=== PATIENT | male | born 1985 | race African-American/Black ===

== ENCOUNTER 2017-02-01 22:39 | Emergency (ER) ==
[2017-02-01 22:52] VITALS: BP 129/80
--- NOTE | 2017-02-01 23:50 | PROVIDER DOCUMENTATION ---
HPI-General Adult - General Chief Complaint: Flu Symptoms Stated Complaint: COUGH, FEVER Time Seen by Provider: 02/01/17 23:41 Source: patient Allergies/Adverse Reactions: Patient Allergies Allergy/AdvReac Type Severity Reaction Status Date / Time No Known Allergies Allergy Verified 02/01/17 22:54 Home Medications: Home Medication List Medication Instructions Recorded Confirmed Last Taken Type Azithromycin [Zithromax Z-Killian] 250 mg PO DIRECTED #1 pkg 02/01/17 Unknown Rx Prednisone 20 mg PO BID #10 tablet 02/01/17 Unknown Rx - History of Present Illness -Gen Adult Nature of Presenting Problems: Pt is a 31 yom who presents to ER with CC of flu-like symptoms with unspecified onset. Pt complains of cough, F/chills, body aches, and cough. Location of Pain/Injury: reports: none Pain Radiation: reports: no radiation Quality of Pain: reports: none Severity: reports: mild Onset/Duration: reports: unsure Timing: reports: still present Associated Symptoms: reports: cough, fatigue, fever/chills, muscle aches. denies: diarrhea, dizziness, headaches, loss of appetite, nausea, shortness of breath, syncope, vomiting, weakness, trouble walking Review of Systems - Adult - REVIEW OF SYSTEMS - ADULT Constitutional: reports: chills, fever, fatique. denies: night sweats, weight gain, weight loss Eyes: reports: no symptoms reported Ears, Nose, Mouth & Throat: reports: no symptoms reported Cardiovascular: denies: chest pain, edema, heart murmur, irregular heart rate, orthopnea, palpitations, poor circulation, PND, syncope Respiratory: reports: cough. denies: chronic cough, dyspnea on exertion, excessive sputum production, hemoptysis, pleurisy, shortness of breath, wheezing Gastrointestinal: denies: abdominal pain, hematemesis, constipation, diarrhea, difficulty swallowing, frequent heartburn, nausea, poor appetite, rectal bleeding, vomiting Genitourinary: reports: no symptoms reported Musculoskeletal: reports: muscle aches, muscle weakness. denies: bone pain, back pain, frequent leg cramps, joint pain, joint swelling, neck pain Integumentary: reports: no symptoms reported Neurological: reports: no symptoms reported Psychiatric: reports: no symptoms reported Endocrine: reports: no symptoms reported Hematologic/Lymphatic: reports: no symptoms reported Allergic/Immunologic: reports: no symptoms reported All Other Systems: Reviewed and Negative Past History - Adult - PAST MEDICAL HISTORY-ADULT Review of Records: reports: Nursing Assessment Review, Medications Reviewed - IMMUNIZATION STATUS Childhood Immunizations: See Nurse Assessment Flu Vaccine: See Nurse Assessment Physical Exam-General - PHYSICAL EXAM-ADULT Initial Vital Signs Reviewed: Yes - CONSTITUTIONAL General Appearance: appears well, alert, mild distress, lethargic. negative: no apparent distress, moderate distress, severe distress, cachetic, obese, thin , anxious, slow to respond, obtunded, combative - NECK Neck: non-tender, full range of motion, supple. negative: limited range of motion, lymphadenopathy - RESPIRATORY Respiratory: chest non-tender, lungs clear, normal breath sounds. negative: respiratory distress, decreased breath sounds, accessory muscle use, wheezing - CARDIOVASCULAR Cardiovascular: normal peripheral pulses, regular rate, rhythm. negative: bradycardia, tachycardia - MUSCULOSKELETAL Extremity: normal range of motion, non-tender, normal gait. negative: deformity , erythema, inflammation, pedal edema, slow capillary refill, swelling, tenderness - NEUROLOGIC Neurologic: grossly normal, no motor/sensory deficits. negative: facial droop, focal weakness, motor weakness, sensory deficit - PSYCHIATRIC Psych/Mental Status: normal thought content, normal thought process, oriented x 3, depressed affect. negative: normal mood/affect, disoriented x 3, anxious, disheveled, paranoid, tearful Progress - PLAN OF CARE/RESULTS Progress/Plan/Lab Results: Vital Signs - 24 hr 02/01/17 22:50 Temperature 98.3 F Pulse Rate 95 H Respiratory 16 Rate Blood Pressure 129/80 O2 Sat by Pulse 99 Oximetry Orders Category Date Time Status Flu Swab [INFLUENZA SCREEN A/B] Stat Lab 02/01/17 22:52 Completed Departure - Departure Time of Disposition Order: 23:49 DIAGNOSIS: URI (upper respiratory infection) Qualifiers: URI type: unspecified URI Qualified Code(s): J06.9 - Acute upper respiratory infection, unspecified Disposition: HOME 01 Certified Medical Emergency: Emergent Condition: Stable Prescriptions: Prednisone 20 mg PO BID #10 tablet Azithromycin [Zithromax Z-Killian] 250 mg PO DIRECTED #1 pkg Referrals: None,PCP [Primary Care Provider] - Instructions: Upper Respiratory Infection, Adult, [id number] Attestation - Scribe Verification/Attestation Scribe:: Rashard Adkins Acting as Scribe for:: Michael Cox Scribe documention review:: This chart was documented by a scribe and accurately reflects the service the provider performed and the decisions made by the provider.
== END 2017-02-01 23:49 | disposition home or self-care (01) ==
LOC: ED 22:39
DX: J06.9 Acute upper respiratory infection, unspecified (principal); R05 Cough; R50.9 Fever, unspecified; M79.1 Myalgia; R53.83 Other fatigue; M62.81 Muscle weakness (generalized)
CPT/HCPCS: 87804